=== PATIENT | male | born 1965 | race Caucasian/White ===

== ENCOUNTER 2016-10-18 19:03 | Emergency (ER) | payer OTHER ==
[~2016-10-18] VITALS: Ht 188 cm; Wt 111.1 kg
--- NOTE | 2016-10-18 19:48 | ED GI/GU/ABDOMINAL COMPLAINT ---
History of Present Illness General Chief Complaint: Abdominal Pain/Flank Pain Stated Complaint: ABDOMINAL PAIN Vital Signs & Intake/Output Vital Signs & Intake/Output Vital Signs Date Time Temp Pulse Resp B/P B/P Pulse O2 O2 Flow FiO2 Mean Ox Delivery Rate 10/18 1914 97.8 69 16 146/86 98 Room Air Allergies Coded Allergies: MDX - Penicillin (PENICILLIN) (Intermediate, HIVES 04/25/15) Triage Note: PT STATES HE HAS BEEN HAVING BLOATING AND NAUSEA IN HIS STOMACH FOR THE PAST 2 MONTSH. PT STATES HE HAD A CT DONE AND US DONE WITHIN THE LAST MONTH WITH NOTHING THAT WAS ALARMING. PT STATES HE IS NOW GETTING SHARP STABBING PAIN FROM RIGHT SIDE OF CHEST RADIATING TO HIS BACK AND WORSE AFTER HE EATS. Past History Travel History Traveled to [place] past 21 day No Medical History Neurological: NONE EENT: NONE Cardiovascular: NONE Respiratory: NONE Gastrointestinal: NONE Hepatic: NONE Renal: NONE Musculoskeletal: NONE Psychiatric: NONE Endocrine: NONE Surgical History Surgical History: N Psychosocial History Who do you live with Spouse Services at Home NONE What is your primary language Chinese Tobacco Use: Never used ETOH Use: occasional use Illicit Drug Use: denies illicit drug use Departure Departure Condition: Stable Referrals: MANUELITO MARSHALL,ELOY Stiles (PCP/Family) Departure Forms: Customer Survey General Discharge Information
--- NOTE | 2016-10-18 20:17 | ED GI/GU/ABDOMINAL COMPLAINT ---
History of Present Illness General Chief Complaint: Abdominal Pain/Flank Pain Stated Complaint: ABDOMINAL PAIN Source: patient Exam Limitations: no limitations Vital Signs & Intake/Output Vital Signs & Intake/Output Vital Signs Date Time Temp Pulse Resp B/P B/P Pulse O2 O2 Flow FiO2 Mean Ox Delivery Rate 10/18 2126 67 20 136/74 96 10/18 1914 97.8 69 16 146/86 98 Room Air Allergies Coded Allergies: MDX - Penicillin (PENICILLIN) (Intermediate, HIVES 04/25/15) Triage Note: PT STATES HE HAS BEEN HAVING BLOATING AND NAUSEA IN HIS STOMACH FOR THE PAST 2 MONTSH. PT STATES HE HAD A CT DONE AND US DONE WITHIN THE LAST MONTH WITH NOTHING THAT WAS ALARMING. PT STATES HE IS NOW GETTING SHARP STABBING PAIN FROM RIGHT SIDE OF CHEST RADIATING TO HIS BACK AND WORSE AFTER HE EATS. Triage Nurses Notes Reviewed? yes HPI: Patient has been having right upper abdominal discomfort radiating through to his back for the past 3 months. There are no aggravating or mitigating factors. The symptoms are there constantly. Patient states he occasionally gets a burning sensation in the back of his throat. He denies any chest pain or shortness of breath. There is no nausea or vomiting. There is no constipation or diarrhea. Patient has been seen by his fitter up and had a CAT scan and an ultrasound both of which did not show any significant abnormalities to explain his symptoms. Patient was sitting at home today and was thinking about the symptoms and became very concerned about his liver and gallbladder so he came in for an evaluation. He rates the discomfort at a 6 out of 10. He cannot describe it other than to say this is a discomfort and bloating. Past History Travel History Traveled to [place] past 21 day No Medical History Any Pertinent Medical History? none Neurological: NONE EENT: NONE Cardiovascular: NONE Respiratory: NONE Gastrointestinal: NONE Hepatic: NONE Renal: NONE Musculoskeletal: NONE Psychiatric: NONE Endocrine: NONE Surgical History Surgical History: non-contributory, N Psychosocial History Who do you live with Spouse Services at Home NONE What is your primary language Serbian Tobacco Use: Never used ETOH Use: occasional use Illicit Drug Use: denies illicit drug use Family History Hx Contributory? No Review of Systems Review of Systems Constitutional: Reports: no symptoms. EENTM: Reports: no symptoms. Respiratory: Reports: no symptoms. Cardiovascular: Reports: no symptoms. GI: Reports: see HPI, abdominal pain, bloating. Genitourinary: Reports: no symptoms. Musculoskeletal: Reports: no symptoms. Skin: Reports: no symptoms. Neurological/Psychological: Reports: no symptoms. Hematologic/Endocrine: Reports: no symptoms. Immunologic/Allergic: Reports: no symptoms. All Other Systems: Reviewed and Negative Physical Exam Physical Exam General Appearance: well developed/nourished, alert, awake, anxious, mild distress Head: atraumatic, normal appearance Eyes: Bilateral: PERRL, EOMI, other (ANICTERIC). Ears, Nose, Throat, Mouth: hearing grossly normal, moist mucous membrane Neck: normal inspection, supple, full range of motion Respiratory: normal breath sounds, chest non-tender, no respiratory distress, lungs clear Cardiovascular: regular rate/rhythm, normal peripheral pulses Gastrointestinal: normal bowel sounds, soft, non-tender, no organomegaly Back: normal inspection, normal range of motion, NO CVA TENDERNESS Extremities: normal range of motion Neurologic/Psych: no motor/sensory deficits, awake, alert, oriented x 3, normal gait, normal mood/affect Skin: intact, normal color, warm/dry Core Measures ACS in differential dx? No Severe Sepsis Present: No Septic Shock Present: No Progress Differential Diagnosis: AMI, biliary colic, cholecystitis, diverticulitis, gastritis, hepatitis, ischemic bowel, inflamm bowel dis, pancreatitis, peptic ulcer, PUD/GERD Plan of Care: Orders Procedure Date/time Status URINALYSIS 10/18 2014 Complete TROPONIN LEVEL 10/18 2014 Complete TRIGLYCERIDES 10/18 2014 Complete LIPASE 10/18 2014 Complete D-DIMER 10/18 2014 Complete COMPREHENSIVE METABOLIC PANEL 10/18 2014 Complete CHOLESTEROL 10/18 2014 Complete CBC WITHOUT DIFFERENTIAL 10/18 2014 Complete AMYLASE 10/18 2014 Complete EKG 10/18 2014 Active Laboratory Tests 10/18/16 2048: Urine Color YEL, Urine Clarity CLEAR, Urine pH 6.0, Ur Specific [place] 1.015, Urine Protein NEG, Urine Ketones NEG, Urine Nitrite NEG, Urine Bilirubin NEG, Urine Urobilinogen 0.2, Ur Leukocyte Esterase NEG, Ur Microscopic EXAM NOT REQUIRED, Urine Hemoglobin NEG, Urine Glucose NEG 10/18/16 2020: Anion Gap 13, Estimated GFR > 60, BUN/Creatinine Ratio 16.7, Glucose 93, Calcium 9.4, Total Bilirubin 0.5, AST 25, ALT 55, Alkaline Phosphatase 67, Troponin I < 0.01, Total Protein 7.1, Albumin 4.5, Globulin 2.6, Albumin/Globulin Ratio 1.7, Triglycerides 248 H, Cholesterol 179, Amylase 53, Lipase 162, D-Dimer < 200, CBC w Diff NO MAN DIFF REQ, RBC 5.08, MCV 90.2, MCH 30.5, RDW 13.0, MPV 7.0 L, Gran % 68.6, Lymphocytes % 19.0 L, Monocytes % 10.5 H, Eosinophils % 1.8, Basophils % 0.1, Absolute Granulocytes 4.3, Absolute Lymphocytes 1.2, Absolute Monocytes 0.6, Absolute Eosinophils 0.1, Absolute Basophils 0, PUBS MCHC 33.9 Initial ED EKG: NSR, no ST T wave changes, nonspecific ST T wave chg Comments: Patient has the reach of his CAT scan and his ultrasound. The results have been reviewed. Laboratory results have been discussed with the patient. Patient will have an outpatient HIDA scan. Patient will also try a gluten-free diet for the next few weeks to see if there is any improvement. Departure Departure Disposition: HOME OR SELF CARE Condition: Stable Clinical Impression Primary Impression: Upper abdominal pain, unspecified Referrals: MANUELITO MARSHALL,ELOY Stiles (PCP/Family) Additional Instructions: Have an outpatient HIDA scan. Go on a gluten-free diet for the next few weeks to see if there is any improvement. Return for any concerns. Departure Forms: Customer Survey General Discharge Information
[2016-10-18 20:40] LABS: ABSOLUTE BASOPHIL COUNT 0 /CUMM (0.0-0.2); ABSOLUTE EOSINOPHIL COUNT 0.1 /CUMM (0.0-0.7); ABSOLUTE GRANULOCYTE CT 4.3 /CUMM (1.4-6.5); ABSOLUTE LYMPH COUNT 1.2 /CUMM (1.2-3.4); ABSOLUTE MONOCYTE COUNT 0.6 /CUMM (0.10-0.60); BASOPHIL % 0.1 % (0.0-2.0); EOSINOPHIL % 1.8 % (0-5); GRANULOCYTE % 68.6 % (42.2-75.2); HEMATOCRIT 45.8 % (42-52); MEAN CORPUSCULAR HGB 30.5 PG (27.0-31.0); MEAN CORPUSCULAR HGB CONC 33.9 G/DL (33.0-37.0); MEAN CORPUSCULAR VOLUME 90.2 FL (80.0-94.0); PLATELET COUNT 271 /CUMM (130-400); RED BLOOD CELL CT 5.08 /CUMM (4.70-6.10); WHITE BLOOD CELL COUNT 6.2 /CUMM (4.8-10.8)
[2016-10-18 21:27] VITALS: BP 136/74
[2016-10-18] MEDS ORDERED: ALPRAZOLAM1 M2 (21:51)
[2016-10-18] MEDS ORDERED: VYTORIN 10-101 EACH (21:53)
[2016-10-18] MEDS ORDERED: LEVSIN-SL0.125 MG SL (21:53)
== END 2016-10-18 21:57 ==
LOC: ERH 19:03
PROVIDERS: Emergency Medicine
DX: R10.11 Right upper quadrant pain (principal)
CPT/HCPCS: 81003; 93005; 93010